=== PATIENT | male | born 1955 | race Caucasian/White ===

== ENCOUNTER 2017-03-06 09:00 | Inpatient (IN) | payer BC ==
[~2017-03-06] VITALS: Ht 177.8 cm; Wt 95.1 kg
--- NOTE | ~2017-03-06 | OR ---
PATIENT'S NAME: GHANSHYAM SIMEON [facility] AGE: 61 Y [address] ROOM: [place] [address] LOCATION: [facility] ADMIT DATE: 03/21/2017 OR/Procedure Report DISCHARGE DATE: FAMILY PHYSICIAN: Ashkan Chaves MD ATTENDING PHYSICIAN: KETAN TAPIA SURGEON: Ketan Tapia MD FIXED INCOME DIRECTOR: Galindo Moore PA-C and Mickey Vasquez CST/HYDRO GENERATION SUPERVISOR. DATE OF PROCEDURE: 03/21/2017 PRE-OP DIAGNOSIS: Primary osteoarthritis, left hip. POST-OP DIAGNOSIS: Primary osteoarthritis, left hip. OPERATION: Left total hip arthroplasty with Firetide Robotic Arm Guidance and computer navigation. ANESTHESIA: Spinal anesthesia plus subcutaneous and periarticular local anesthesia. ESTIMATED BLOOD LOSS: Approximately 275 mL. DRAIN: None. SPECIMEN: None. COMPLICATIONS: None. IMPLANTS: Palmer Trident Tritanium, size 56 mm hemispherical uncemented acetabular shell with one dome hole cover and no screws. Palmer X3 neutral acetabular polyethylene liner with 36 mm inner diameter acetabular liner. DePuy Hanover size 7, high offset, uncemented femoral component. A 36-mm diameter Biolox femoral head with +1.5 mm neck length femoral head. INDICATION FOR SURGERY: Ghanshyam Simeon is a 61-year-old male, who presents with advanced left hip primary osteoarthritis and associated severely compromised activities of daily living. The patient has decided to proceed with hip replacement after having been thoroughly counseled regarding the associated risks, benefits, and limitations. We have specifically reviewed the risks and implications of infection, deep venous thrombosis, pulmonary embolism, mortality, neurovascular complications, blood transfusion (and associated potential for disease transmission or transfusion reaction), stiffness, instability, leg length discrepancy, mechanical deterioration of the components (due to wear and to loosening), and the potential need for PATIENT'S NAME: GHANSHYAM SIMEON [facility] AGE: 61 Y [address] ROOM: [place] [address] LOCATION: [facility] ADMIT DATE: 03/21/2017 OR/Procedure Report DISCHARGE DATE: FAMILY PHYSICIAN: Ashkan Chaves MD ATTENDING PHYSICIAN: KETAN TAPIA revision. DESCRIPTION OF PROCEDURE: The patient was positioned in a lateral decubitus position with the left side up after administration of anesthesia and prophylactic antibiotics. An axillary roll was placed and the non-operative leg was well padded. The pelvis was locked perpendicularly to the floor on a pegboard. The left hip and entire operative extremity were prepped and draped with vigilant sterile technique. The patient's name as well as the intended operative side and procedure were confirmed with a verbal time-out involving myself, the circulating nurse, the scrub nurse, and the anesthesiologist. The left hip was approached through a standard posterolateral incision. The fascia branden and the gluteus adrian fascia were sharply divided in line with the overlying skin incision. The sciatic nerve was identified and was vigilantly protected throughout the entire case. The short external rotators and posterior capsule were divided from their respective femoral insertions and tagged with four #1 Ethibond sutures for later repair. The hip was posteriorly dislocated with combined flexion, adduction, and internal rotation. The femoral neck osteotomy was performed with an oscillating saw. Inspection of the femoral head demonstrated full-thickness loss of articular cartilage throughout the majority of the femoral head. There was no femoral head collapse. There was a moderate-sized osteophyte at the periphery of the femoral head. Circumferential acetabular exposure was obtained. Inspection of the acetabulum demonstrated no dysplasia. There was a large effusion consisting of benign-appearing translucent synovial fluid. There was a moderate-sized medial acetabular osteophyte. There was a large anterosuperior osteophyte. There was also a 1-cm ossicle adherent to the anterior superior margin of the acetabulum. There was full-thickness loss of articular cartilage throughout the majority of the weightbearing surface of the acetabulum. Remnants of the acetabular labrum were sharply thoroughly excised. The acetabulum was sequentially progressively reamed up to 56 mm with hemispherical power reamers. It should be noted that reaming was performed using the Firetide Robotic Arm Guidance System. The final acetabular shell was impacted into position in 20 degrees of anteversion and 45 degrees of inclination. An excellent press-fit was obtained. No supplemental dome screw fixation was necessary. It should be noted that the acetabular shell was impacted into position using the Palmer Jonathan Robotic Arm Guidance System. A neutral trial liner was inserted. Attention was next focused upon femoral preparation. The femoral canal PATIENT'S NAME: GHANSHYAM SIMEON [facility] AGE: 61 Y [address] ROOM: [id number] [place], [place] [address] LOCATION: [facility] ADMIT DATE: 03/21/2017 OR/Procedure Report DISCHARGE DATE: FAMILY PHYSICIAN: Ashkan Chaves MD ATTENDING PHYSICIAN: KETAN TAPIA initiator was utilized. The femoral canal was reamed by hand to a size 5, and subsequently on power up to a size 7 with tapered conical reamers. The size 7 reamer tightly engaged the endosteal cortex of the proximal femur. The femoral canal was subsequently sequentially progressively broached up to a size 7. The size 7 broach obtained excellent axial and rotational stability. Trial reductions with the above specified construct yielded acceptable stability and acceptable reproduction of leg length and offset. All trial components were removed. The final acetabular liner was inserted with excellent circumferential visualization of its locking mechanism to assure adequate deployment. The final femoral component was impacted into position. The femoral component achieved excellent axial and rotational stability. The trunnion of the femoral component was vigilantly protected prior to placement of the femoral head. The trunnion of the femoral component was thoroughly cleaned and dried prior to placement of the femoral head. The incision was thoroughly irrigated with bacteriostatic pulsatile saline lavage multiple times throughout the case. The entire joint space was thoroughly inspected and thoroughly irrigated to assure that there was no residual debris of any sort. A final reduction was then performed. After final reduction, the hip could be firmly externally rotated in full extension and zero degrees of abduction without anterior subluxation. In neutral rotation and zero degrees of abduction, the hip could be firmly flexed to 120 degrees without instability. At 90 degrees of flexion and zero degrees abduction, the hip could be internally rotated to 65 degrees before there was any hint of posterior subluxation. The posterior capsule and short external rotators were repaired through two drill holes in the posterior aspect of the greater trochanter. The fascia branden and gluteus adrian fascia were closed with multiple simple and [id number] interrupted # 1 Ethibond and #1 Vicryl sutures. Subcutaneous tissues were thoroughly re-irrigated with bacteriostatic pulsatile saline lavage. Subcutaneous tissues were re-approximated with simple buried interrupted #0 Vicryl sutures. The skin was closed with superficial buried interrupted 2-0 Vicryl sutures followed by a running subcuticular 3-0 Monocryl suture, followed by Octylseal, followed by Steri- Strips with benzoin, followed by an occlusive Mepilex dressing. There were no intra-operative complications. It should be noted that an accessory anterosuperior incision was made over the iliac crest (5 cm in length) through which three partially threaded Steinmann PATIENT'S NAME: GHANSHYAM SIMEON [facility] AGE: 61 Y [address] ROOM: [address] [address] LOCATION: [facility] ADMIT DATE: 03/21/2017 OR/Procedure Report DISCHARGE DATE: FAMILY PHYSICIAN: Ashkan Chaves MD ATTENDING PHYSICIAN: KETAN TAPIA pins were placed between the inner and outer tables of the iliac wing to anchor the robotic guidance tracker arrays. These three pins were removed intact at the conclusion of the case, and the incision was thoroughly irrigated and injected with local anesthetic prior to closure with simple, deep interrupted 0 Vicryl, followed by superficial buried interrupted 2-0 Vicryl, followed by a running subcuticular 3-0 Monocryl suture, followed by Dermabond, and followed by Steri-Strips with benzoin. The dressing consisted of an occlusive Mepilex dressing. It should be noted that the physician's payroll human resources assistant played an active, integral role throughout this entire operation. By providing expert retraction, they greatly facilitated and expedited safe and effective exposure of the proximal femur and acetabulum for preparation and implantation of the components. They were also actively involved in the patient's positioning, prepping and draping, as well as wound closure. MD DAGOBERTO LEONGW/modl /[id number] d: 03/21/172251 t: 03/24/172221, OPERATIVE SUMMARY
[~2017-03-06 09:00] MED LIST: ALEVE220 MG PO; ASPIRIN (CHILDR81 MG PO; LIPITOR40 MG PO; LOPRESSOR25 MG PO
--- NOTE | 2017-03-21 18:23 | NUR ---
Significant Event: PT ARRIVED ON FLOOR AT 1615 FROM PACU. ALERT AND ORIENTED. RESTS QUIETLY IN THE BED. ABLE TO WIGGLES FEET WELL NOW. NO VOID YET. POST OP VITALS CONT. 3RD 1/2 HOUR AT 1830. TAKES FLUIDS WELL. IS 2500. ICE TO HIP. DENIES PAIN. Follow up:
--- NOTE | 2017-03-22 03:29 | NUR ---
Shift Summary: Patient can ambulate with one assist/walker. Minimal pain. Gave 2mg Dilaudid with scheduled tylenol at 2349. Patient voiding without difficulty. Tolerating regular diet well.
--- NOTE | 2017-03-22 08:20 | NUR ---
Introduced self/role to patient, lives in [place] with is . He denied any barriers to going home or at home, no need for DME. He is planning to go home tomorrow unless things go really well today. He does need to work on steps. His will be around to help him until Monday. Added my name to his marker board, will follow.
--- NOTE | 2017-03-22 17:10 | NUR ---
Significant Event: patient alert and oriented x3. mepilex dressing x2 to l) hip c/d/i. csm assessments wnl. pain well controlled with dilaudid 1 tab given last at 1543, and with routine tylenol extra strength. ambulated in christensen and up to chair with sba, use of walker/gait belt. bilateral knee high teds and foot pumps on. ice bag to l) hip. patient pleasant and coopertive with cares. Follow up:
--- NOTE | 2017-03-23 03:21 | NUR ---
Significant Event: Dressing is clean, dry and intact. CSM WNL. 1 assist with transfers. Voids. Dilaudid at 0048. On room air. Bradycardic. Held Lopressor. Possible dismissal. Follow up:
[2017-03-23] MEDS ORDERED: TYLENOL EXTRA500 MG PO (11:13)
[2017-03-23] MEDS ORDERED: COLACE100 MG PO (12:56)
[2017-03-23] MEDS ORDERED: MIRALAX17 GM PO (12:57)
[2017-03-23] MEDS ORDERED: NEURONTIN300 MG PO (12:58)
[2017-03-23] MEDS ORDERED: XARELTO10 MG PO (12:59)
[2017-03-23] MEDS ORDERED: DILAUDID 2MG(HYD2 MG PO (13:01)
--- NOTE | 2017-03-23 14:10 | NUR ---
d: patient alert and oriented x3. mepilex dressing x2 to l) hip c/d/i. csm assessments wnl. pain well controlled with dilaudid 1 tab given last at 1342. ambulates ad singh, with use of walker/gait belt, tolerates well. up to chair. bilateral knee high elton hose and foot pumps on. ice bag to l) hip. discharge instructions reviewed with patient and , verbalizes understanding. patient dismissed to home, accompanied by . assisted to vehicle via w/c and transport assistance.
== END 2017-03-23 14:10 | disposition disaster alternative care site (69) | DRG 470 ==
LOC: G3N 03-21 09:02
PROVIDERS: ADMIT Orthopaedic Surgery
PROC: 8E0YXBZ Computer Assisted Procedure of Lower Extremity (ICD-10-PCS; principal; 2017-03-21)
PROC: 0SRB02A Replacement of Left Hip Joint with Metal on Polyethylene Synthetic Substitute, Uncemented, Open Approach (ICD-10-PCS; principal; 2017-03-21)
PROC: 8E0Y0CZ Robotic Assisted Procedure of Lower Extremity, Open Approach (ICD-10-PCS; principal; 2017-03-21)
DX: M16.12 Unilateral primary osteoarthritis, left hip (principal); E78.5 Hyperlipidemia, unspecified; Z85.828 Personal history of other malignant neoplasm of skin; I25.2 Old myocardial infarction; I25.10 Atherosclerotic heart disease of native coronary artery without angina pectoris; Z95.1 Presence of aortocoronary bypass graft
CPT/HCPCS: C1713; C1776; J1100; J1885; J2001; J2250; J2405; J2795; J7120

== ENCOUNTER → 2017-03-09 | Outpatient (CLI) | payer BC ==
[~2017-03-09] MED LIST changes: +COLACE100 MG PO; +DILAUDID 2MG(HYD2 MG PO; +MIRALAX17 GM PO; +NEURONTIN300 MG PO; +TYLENOL EXTRA500 MG PO; +XARELTO10 MG PO
== END ==
LOC: GNJRC 10:30
DX: M25.552 Pain in left hip (principal)